=== PATIENT | female | born 1970 | race Caucasian/White ===

== ENCOUNTER 2022-07-20 08:09 | Emergency (ER) | payer SELFPAY ==
--- NOTE | ~2022-07-20 | XR_ITS ---
EXAMINATION: XR chest 2V DATE: 07/20/2022 08:41 INDICATION: Cough and congestion. TECHNIQUE: Frontal and lateral views of the chest were obtained. COMPARISON: None. FINDINGS: There are airspace opacities in left lower lung zone. No pleural effusion or pneumothorax. The heart size is normal. IMPRESSION: 1. Mild airspace opacities in left lower lung zone, consistent with atelectasis versus pneumonia. Reviewed, dictated and finalized at location A. [employer]
[2022-07-20 08:14] VITALS: BP 141/85; PULSE 73; RESP 20; TEMP 37.1; O2SAT 94
[2022-07-20 08:30] VITALS: BP 141/85; PULSE 73; RESP 20; TEMP 37.1; O2SAT 94
--- NOTE | 2022-07-20 08:48 | ED.URI ---
HPI - URI/Sore Throat General Chief Complaint: Upper Respiratory Infection Stated Complaint: Chest Congestion/Cough Time Seen by Provider: 07/20/22 08:30 Source: patient, RN notes reviewed and old records reviewed Mode of arrival: ambulatory Limitations: no limitations History of Present Illness HPI Narrative: 52 year old female who presents to the [facility] care with 10 day history of chest congestion with expectoration of greenish brownish sputum for the past 10 days with dyspnea, tightness to chest with breathing, wheezing, some sore throat, ear pain greatest left ear. Patient reports history of COPD, asthma and emphysema with tobacco use for many years. Patient reports that she thinks she has pneumonia can't seem to get any better. She reports that she has not had acute fevers, chills or sweats. Patient has been taking Mucinex DM and using her inhaler and nebulizer for her respiratory symptoms. MD elicited complaint: cough and sore throat Pertinent past history: COPD and asthma Onset (ago): day(s) (10) Pain scale (0-10): 7 Able to tolerate fluids by mouth: Yes Associated symptoms: sore throat, cough, shortness of breath and ear pain Treatments prior to arrival: other (Mucinex DM) Related Data Home Medications Medication Instructions Recorded Confirmed albuterol sulfate 90 mcg/actuation inhalation 07/20/22 07/20/22 aerosol inhaler Allergies Allergy/AdvReac Type Severity Reaction Status Date / Time No Known Allergies Allergy Verified 07/20/22 08:28 Review of Systems Review of Systems: CONSTITUTIONAL: Reports malaise,no known chills, sweats, or fever. EYES: Denies visual changes, redness, or discharge. ENT: Reports some rhinorrhea, congestion,no sinus pain,bilateral otalgia and sore throat. CARDIOVASCULAR: Denies chest pain reports tightness with breathing,no palpitations, or edema. RESPIRATORY: Reports cough productive.?some dyspnea with exertion. GASTROINTESTINAL: Denies abdominal pain, nausea, vomiting, diarrhea SKIN: Denies rash or itching. MUSCULOSKELETAL: Denies myalgia. NEUROLOGIC: Denies headache. All systems reviewed & are unremarkable except as noted in HPI and below PMFSH Past Medical History Medical History (Updated 07/20/22 @ 09:26 by Hellen Rasheed NP) Asthma COPD (chronic obstructive pulmonary disease) Emphysema lung Surgical History Surgical History (Updated 07/20/22 @ 09:26 by Hellen Rasheed NP) Hx of cholecystectomy Social History Social History (Updated 07/20/22 @ 09:26 by Hellen Rasheed NP) Smoking packs per day: 1 Smoking cigarettes per day: 20.0 Years smoked: 30 Smoking pack-years: 30.00 Smoking status: Current every day smoker Tobacco type: cigarettes Alcohol intake: current Alcohol use details: social Substance use: never Substance use type: does not use Gender identity (if verbalized by the patient): Female Comments At time of signature, agree with nursing past medical, surgical, social and family history. There is no relevant family history pertinent to the presenting complaint Exam Narrative: GENERAL: Well-appearing, well-nourished,morbidly obese, and in no acute distress. HEAD: Normocephalic EYES: PERRLA, conjunctivae clear ENT: Nares clear, turbinates edematous and erythematous, clear discharge. Mucous membranes moist.Left TM red,Right TM pearly [place] with dull light reflex bilaterally; no tragal tenderness. Oropharynx erythematous without lesions. Tonsils not enlarged and without exudate, no drooling, no hoarseness, no trismus, uvula midline. NECK: Supple. No lymphadenopathy CHEST: Decreased to auscultation, breath sounds equal. No wheezing, rhonchi left base, no rales, or stridor. No respiratory distress, speaks in full sentences.cough productive Dyspnea with exertion SAO2 94% on room air HEART: Regular rate and rhythm. No murmur heard. SKIN: Warm, dry, no rash. NEURO: Alert and oriented x3. PSYCH: Normal
== END 2022-07-20 09:25 | disposition home or self-care (01) ==
PROVIDERS: Emergency Provider Registered Nurse; PCP Family Medicine
DX: J18.1 Lobar pneumonia, unspecified organism (principal); J44.1 Chronic obstructive pulmonary disease with (acute) exacerbation; F17.210 Nicotine dependence, cigarettes, uncomplicated
CPT/HCPCS: 71046; 99213; G0463

== ENCOUNTER 2022-09-07 15:28 | Emergency (ER) | payer SELFPAY ==
[2022-09-07 15:43] VITALS: BP 128/79; PULSE 73; RESP 16; TEMP 36.8; O2SAT 98
--- NOTE | 2022-09-07 16:31 | ED.GENADULT ---
HPI - General Adult General Chief complaint: Upper Respiratory Infection Stated complaint: Chest Congeston/Sinus Congestion Source: patient Mode of arrival: ambulatory Limitations: no limitations History of Present Illness HPI narrative: Patient presents for evaluation of sick symptoms for last week. Symptoms include fever, chills, sinus congestion, mucopurulent discharge from the nares, productive cough of yellow/green sputum, and shortness of breath. No nausea, vomiting, diarrhea. Her family members recently had similar symptoms. She smokes 1 ppd. she has tried DayQuil, NyQuil, Sudafed, Mucinex without considerable improvement in her symptoms. Related Data Home Medications Medication Instructions Recorded Confirmed albuterol sulfate 90 mcg/actuation See Rx Instructions .Route 07/20/22 07/22/22 aerosol inhaler .COMPLEX PRN sob Allergies Allergy/AdvReac Type Severity Reaction Status Date / Time No Known Allergies Allergy Verified 07/20/22 08:28 Review of Systems Review of Systems: CONSTITUTIONAL: Reports fever and chills EYES: Denies visual changes, redness, or discharge. ENT: Reports sinus congestion, mucopurulent discharge from nares, sore throat and bilateral otalgia CARDIOVASCULAR: Denies chest pain, palpitations, or edema. RESPIRATORY: Reports productive cough of yellow-green sputum with SOB and wheezing GASTROINTESTINAL: Denies abdominal pain, nausea, vomiting, or diarrhea. GENITOURINARY: Denies dysuria or hematuria. SKIN: Denies rash or itching. MUSCULOSKELETAL: Denies back pain, joint pain, or myalgia. NEUROLOGIC: Denies headache, numbness, dizziness, or weakness. PSYCHIATRIC: Denies anxiety or depression. [facility] Past Medical History Medical History Asthma COPD (chronic obstructive pulmonary disease) Emphysema lung Surgical History Surgical History Hx of cholecystectomy Family History Family History Mother Family history non-contributory Social History Social History (Updated 07/20/22 @ 09:26 by Hellen Rasheed NP) Smoking packs per day: 1 Smoking cigarettes per day: 20.0 Years smoked: 30 Smoking pack-years: 30.00 Smoking status: Current every day smoker Tobacco type: cigarettes Alcohol intake: current Alcohol use details: social Substance use: never Substance use type: does not use Gender identity (if verbalized by the patient): Female Exam Narrative: GENERAL: Well-appearing, well-nourished, and in no acute distress. HEAD: Normocephalic, atraumatic. EYES: PERRLA and EOMI. ENT: Bilateral maxillary and frontal sinus tenderness. Mucopurulent discharge in nares. Mucous membranes moist. Oropharynx without tonsillar hypertrophy exudate or other lesions. Bilateral TMs pearly [place]banks nonbulging NECK: Supple. No adenopathy or masses. No carotid bruits or JVD CHEST: Occasional cough present on exam. Mild diffuse inspiratory and expiratory wheezing bilaterally in posterior lung field HEART: Regular rate and rhythm. No murmur heard. Normal peripheral pulses. ABDOMEN: Soft, nontender, nondistended, normal active bowel sounds. EXTREMITIES: Normal range of motion. No edema. SKIN: Warm, dry, no rash. NEURO: No focal deficits. Alert and oriented x3. PSYCH: Normal mood and affect. Course Course Emergency Course: This is a 52-year-old female who presented for evaluation of respiratory symptoms. She meets criteria for ABRS based on duration of symptoms and characteristics of nasal discharge. Increase hydration. Encourage smoking cessation. Follow up with primary provider. Go to ER for worsening symptoms. Pt in agreement with plan of care. Level of Care: Express Care Visit Vital Signs Vital signs: Vital Signs Temperature 36.8 C 09/07/22 15:43 Pulse Rate 73 09/07/22 15:43 Respirat
== END 2022-09-07 16:41 | disposition home or self-care (01) ==
PROVIDERS: Emergency Provider Nurse Practitioner; PCP Emergency Medicine
DX: J01.90 Acute sinusitis, unspecified (principal); B96.89 Other specified bacterial agents as the cause of diseases classified elsewhere; J43.9 Emphysema, unspecified; F17.210 Nicotine dependence, cigarettes, uncomplicated
CPT/HCPCS: 99213; G0463

== ENCOUNTER 2023-04-25 19:32 | Emergency (ER) | payer SELFPAY ==
[2023-04-25 19:36] VITALS: BP 160/111; PULSE 80; RESP 20; TEMP 36.4; O2SAT 97
--- NOTE | 2023-04-25 19:40 | ED.EAR ---
HPI - Ear Problem General Chief complaint: Ear Stated complaint: Ear Pain Time Seen by Provider: 04/25/23 19:52 Source: patient and RN notes reviewed Mode of arrival: ambulatory Limitations: no limitations History of Present Illness HPI Narrative: 52-year-old female presents with concern for your pain, sinus congestion, sinus pressure, headache. She reports symptoms have been intermittent for several months and has been worsening. She reports drainage from the left ear and pain when she touches ear. She has not taken any medications for her symptoms. MD Complaint: ear pain Related Data Allergies Allergy/AdvReac Type Severity Reaction Status Date / Time No Known Allergies Allergy Verified 07/20/22 08:28 Review of Systems Review of Systems: CONSTITUTIONAL: Reports malaise EYES: Denies visual changes, redness, or discharge. ENT: Reports rhinorrhea, congestion, sinus pain. Reports bilateral ear pain, worse on the left with drainage CARDIOVASCULAR: Denies chest pain, palpitations, or edema. RESPIRATORY: Denies cough. Denies dyspnea. GASTROINTESTINAL: Denies abdominal pain, nausea, vomiting, diarrhea SKIN: Denies rash or itching. MUSCULOSKELETAL: Reports myalgia. NEUROLOGIC: Reports headache. All systems reviewed & are unremarkable except as noted in HPI and below PMFSH Past Medical History Medical History Asthma COPD (chronic obstructive pulmonary disease) Emphysema lung Surgical History Surgical History Hx of cholecystectomy Family History Family History Mother Family history non-contributory Social History Social History (Updated 07/20/22 @ 09:26 by Hellen Rasheed NP) Smoking packs per day: 1 Smoking cigarettes per day: 20.0 Years smoked: 30 Smoking pack-years: 30.00 Smoking status: Current every day smoker Tobacco type: cigarettes Alcohol intake: current Alcohol use details: social Substance use: never Substance use type: does not use Gender identity (if verbalized by the patient): Female Comments At time of signature, agree with nursing past medical, surgical, social and family history. There is no relevant family history pertinent to the presenting complaint Exam Narrative: GENERAL: Well-appearing, well-nourished, and in no acute distress. HEAD: Normocephalic EYES: PERRLA, conjunctivae clear ENT: Nares clear, turbinates edematous, sinus tenderness. Mucous membranes moist. TM pearly [place] with dull light reflex bilaterally; left tragal tenderness with discharge noted. Oropharynx not erythematous without lesions. Tonsils not enlarged and without exudate, no drooling, no hoarseness, no trismus, uvula midline. NECK: Supple. No lymphadenopathy CHEST: Clear to auscultation, breath sounds equal. No wheezing, rhonchi, rales, or stridor. No respiratory distress, speaks in full sentences. HEART: Regular rate and rhythm. No murmur heard. SKIN: Warm, dry, no rash. NEURO: Alert and oriented x3. PSYCH: Normal mood and affect Course Course Emergency Course: Patient is aware of diagnosis, understands and agrees to treatment plan. Anticipatory guidance given. Patient agrees to follow-up as directed and is aware of reasons to seek care at the emergency department. Portions of this record may have been created with voice recognition software Level of Care: Express Care Visit Vital Signs Vital signs: Reviewed. Medical Decision Making MDM Narrative Medical decision making narrative: Differential diagnosis considered: [place] virus, strep pharyngitis, allergic rhinitis, upper respiratory tract infection, sinusitis, rhinosinusitis, nasopharyngitis. viral pharyngitis, otitis media, otitis externa, otitis effusion, cerumen impaction, foreign body. Exam findings show no acute concerns or changes; roma
== END 2023-04-25 19:57 | disposition home or self-care (01) ==
PROVIDERS: Emergency Provider Nurse Practitioner
DX: J32.9 Chronic sinusitis, unspecified (principal); H60.92 Unspecified otitis externa, left ear; F17.210 Nicotine dependence, cigarettes, uncomplicated; J44.9 Chronic obstructive pulmonary disease, unspecified
CPT/HCPCS: 99213; G0463

== ENCOUNTER 2024-12-09 18:18 | Emergency (ER) | payer SELFPAY ==
--- NOTE | ~2024-12-09 | XR_ITS ---
EXAMINATION: XR chest 2V Exam Date/Time: 12/09/2024 18:50 CDT HISTORY: cough and sob Comparison: 07/20/2022. RESULT: Lines, tubes, and devices: Cholecystectomy clips. Lungs and pleura: Clear. Cardiomediastinal silhouette: Stable. Other: No acute osseous or upper abdominal finding. IMPRESSION: No acute cardiopulmonary process. Reviewed, dictated and finalized at location K.
[2024-12-09 18:27] VITALS: BP 140/86; PULSE 72; RESP 16; TEMP 37.3; O2SAT 95
[2024-12-09] MEDS: methylPREDNISolone SOD SUCC 125 MG VIAL IM (18:51)
--- NOTE | 2024-12-09 19:37 | ED_ITS ---
HPI - Ear Problem General Chief complaint: Upper Respiratory Infection Stated complaint: fever, ears/nose/throat Source: patient Mode of arrival: ambulatory Limitations: no limitations History of Present Illness HPI Narrative: Patient presents for evaluation of sick symptoms for last 3 days. Symptoms include bilateral otalgia, sinus congestion, thick green drainage from the nares, productive cough of green sputum. Shortness of breath, wheezing, fevers, and chills. She denies any nausea, vomiting, diarrhea. Her granddaughter was recently sick. She has not been taking any eddh-ofd-dxyulzt medications to as sist with her symptoms. She does vape. She has an underlying history of COPD, emphysema and asthma. She does not have an albuterol inhaler. She has nebulizer solution to administer at home but has not been administering her nebulizer treatments. Related Data Home Medications ?Medication ?Instructions ?Recorded ?Confirmed ?Last Taken ?Type triamterene 37.5 cap 12/09/24 Unknown History mg-hydrochlorothiazide 25 mg capsule Allergies Allergy/AdvReac Type Severity Reaction Status Date / Time No Known Allergies Allergy Verified 12/09/24 19:15 Review of Systems Review of Systems: CONSTITUTIONAL: Reports fever and chills. EYES: Denies visual changes, redness, or discharge. ENT: Reports bilateral otalgia, sinus congestion, thick green drainage from the nares. CARDIOVASCULAR: Denies chest pain, palpitations, or edema. RESPIRATORY: Reports productive cough of green sputum with shortness of breath and wheezing. GASTROINTESTINAL: Denies abdominal pain, nausea, vomiting, or diarrhea. GENITOURINARY: Denies dysuria or hematuria. SKIN: Denies rash or itching. MUSCULOSKELETAL: Denies back pain, joint pain, or myalgia. NEUROLOGIC: Denies headache, numbness, dizziness, or weakness. PSYCHIATRIC: Denies anxiety or depression. [facility] Past Medical History Medical History Emphysema lung COPD (chronic obstructive pulmonary disease) Asthma Surgical History Surgical History Hx of cholecystectomy Family History Family History Mother Family history non-contributory Social History Social History Smoking packs per day: 1 Smoking cigarettes per day: 20.0 Years smoked: 30 Smoking pack-years: 30.00 Smoking status: Current every day smoker Tobacco type: e-cigarettes/vaping Alcohol intake: current Alcohol use details: social Substance use: never Substance use type: does not use Gender identity (if verbalized by the patient): Female Exam Narrative: GENERAL: Well-appearing, well-nourished, and in no acute distress. HEAD: Normocephalic, atraumatic. EYES: PERRLA and EOMI. ENT: Nares clear, no rhinorrhea or epistaxis. Mucous membranes moist. Oropharynx without tonsillar hypertrophy exudate or other lesions. Bilateral TMs pearly [place] nonbulging NECK: Supple. No adenopathy or masses. No carotid bruits or JVD CHEST: Poor inspiratory effort. Lungs bilaterally diminished. Slight wheezing noted HEART: Regular rate and rhythm. No murmur heard. Normal peripheral pulses. ABDOMEN: Soft, nontender, nondistended, normal active bowel sounds. EXTREMITIES: Normal range of motion. No edema. SKIN: Warm, dry, no rash. NEURO: No focal deficits. Alert and oriented x3. PSYCH: Normal mood and affect. Course Course Emergency Course: This is a 54-year-old female who presented for evaluation of sick symptoms. Chest x-ray normal. She declined strep swab. Exam is consistent with bacterial sinusitis based upon mucopurulent nature for nasal discharge and presents fever. Recommended Augmentin at discharge. She indicates azithromycin typically helps more. Will discharge with azithromycin, prednisone, albuterol. Advised not to vape. Increase hydration. Follow up with primary provider. Go to the ER for worsening symptoms. Patient in agreement with plan of care. Level of Care: Express Care Visit Vital Signs Vital signs: Vital Signs Temperature 37.3 C 12/09/24 18:27 Pulse Rate 72 12/09/24 18:27 Respiratory Rate 16 12/09/24 18:27 Blood Pressure 140/86 12/09/24 18:27 Pulse Oximetry 95 12/09/24 18:27 Oxygen Delivery Room Air 12/09/24 18:27 Temperature 37.3 C 12/09/24 18:27 Pulse Rate 72 12/09/24 18:27 Respiratory Rate 16 12/09/24 18:27 Blood Pressure 140/86 12/09/24 18:27 Pulse Oximetry 95 12/09/24 18:27 Oxygen Delivery Room Air 12/09/24 18:27 Medical Decision Making Vital Signs Vital Signs: Vital Signs Temperature 37.3 C 12/09/24 18:27 Pulse Rate 72 12/09/24 18:27 Respiratory Rate 16 12/09/24 18:27 Blood Pressure 140/86 12/09/24 18:27 Pulse Oximetry 95 12/09/24 18:27 Oxygen Delivery Room Air 12/09/24 18:27 Temperature 37.3 C 12/09/24 18:27 Pulse Rate 72 12/09/24 18:27 Respiratory Rate 16 12/09/24 18:27 Blood Pressure 140/86 12/09/24 18:27 Pulse Oximetry 95 12/09/24 18:27 Oxygen Delivery Room Air 12/09/24 18:27 Imaging Data Radiologist's impression: Ordering Physician: Alcon Armstrong APRN Date of Service: 12/09/24 Procedure(s): XR chest 2V Accession Number(s): [id number] cc: Alcon Armstrong APRN; SANTOS,JULIA Santamaria CNP~ EXAMINATION: XR chest 2V Exam Date/Time: 12/09/2024 18:50 CDT HISTORY: cough and sob Comparison: 07/20/2022. RESULT: Lines, tubes, and devices: Cholecystectomy clips. Lungs and pleura: Clear. Cardiomediastinal silhouette: Stable. Other: No acute osseous or upper abdominal finding. IMPRESSION: No acute cardiopulmonary process. Discharge Plan Discharge Clinical Impression: Sinusitis, COPD (chronic obstructive pulmonary disease) Patient Disposition: Home Condition: Stable Instructions: Antibiotic Form, Sinusitis (ED), COPD (Chronic Obstructive Pulmonary Disease) (DC) Patient Language: [place] Prescriptions: New azithromycin 250 mg tablet See Rx Instructions .ROUTE .COMPLEX Qty: 6 0RF Rx Instructions: For 250 mg dose pack: take 500 mg today (day 1), then 250 mg for 4 days (days 2-5) prednisone 50 mg tablet 50 mg PO DAILY Qty: 5 0RF albuterol sulfate [Ventolin HFA] 90 mcg/actuation HFA aerosol inhaler 2 puff inhalation QID Qty: 8.5 0RF No Action tpoudqts-wqqdomtbp-HQ 3.5-10,000-1 mg/mL-unit/mL-% drops,suspension 4 drop LEFT EAR Q8H 7 Days Qty: 10 0RF albuterol sulfate 90 mcg/actuation HFA aerosol inhaler 2 puff INHALATION QID PRN (Reason: shortness of breath or wheezing) Qty: 8.5 0RF triamterene-hydrochlorothiazid 37.5-25 mg capsule Follow-up/Referrals: Santos,Julia Santamaria [employer] [Primary Care Provider] - Stand Alone Forms: Work/School Release IP Time of Disposition: 19:36
== END 2024-12-09 19:41 | disposition home or self-care (01) ==
PROVIDERS: Emergency Provider Nurse Practitioner; PCP Nurse Practitioner
DX: J32.9 Chronic sinusitis, unspecified (principal); J44.9 Chronic obstructive pulmonary disease, unspecified; F17.290 Nicotine dependence, other tobacco product, uncomplicated
CPT/HCPCS: 71046; 96372; 99213; G0463; J2919